=== PATIENT | male | born 1990 | race Caucasian/White ===

== ENCOUNTER 2023-08-06 10:06 | Day surgery (SDC) | payer BC, SELFPAY ==
[2023-08-06] VITALS (7 sets, daily range): BP systolic 100–143; BP diastolic 70–96; PULSE 68–78; RESP 16–18; TEMP 36.1–36.4; O2SAT 91–100; BMI 35.2
[2023-08-06] MEDS: sodium chloride 0.9% 1,000 ML 30 ML IV (10:56)
--- NOTE | 2023-08-06 11:09 | W.PM.OPSUD ---
Surgery/Procedure H&P Update DATE OF PROCEDURE: August 06, 2023 DATE H&P PERFORMED: 07/24/23 H&P UPDATE INFORMATION: I have reviewed H&P completed within last 30 days, I have examined patient prior to procedure and No changes to prior documentation PLANNED PROCEDURE: Operation Date: 08/06/23 11:50 Proposed Procedures p [id number] excision subcutaneous mass on scalp and excision of skin lesion on back D17.9(Not Applicable) - Jayme Guzman, DO
--- NOTE | 2023-08-06 11:47 | ANES.PREANE2 ---
Pre-Anesthetic Assessment Height/Weight: Height 1.83 m Weight 117.934 kg Temp Pulse Resp BP Pulse Ox O2 Del Method 97.5 F L 69 18 143/96 95 Room Air 08/06/23 10:44 08/06/23 10:44 08/06/23 10:44 08/06/23 10:44 08/06/23 10:44 08/06/23 10:44 Operation Date: 08/06/23 11:50 Proposed Procedures p [id number] excision subcutaneous mass on scalp and excision of skin lesion on back D17.9(Not Applicable) - Jayme Guzman DO Familial anesthetic complications: None Was Beta Enrique taken within 24 hours: N/A Was Clonidine taken within 24 hours: N/A Last intake: Intake Last Liquid Date 08/05/23 Last Liquid Time 19:00 Last Solid Date 08/05/23 Last Solid Time 19:00 Social No alcohol and No tobacco Exam alert, oriented x 3, clear to auscultation bilaterally and regular rate & rhythm Airway Mallampati: Class III Dentition: full Metabolic Morbid Obesity Anesthetic Plan ASA status: 2 Anesthesia: Choice Risk of > 500 ml blood loss (7ml/kg in children): No Medications/Allergies Home Medications Medication Instructions Recorded Confirmed Last Taken Type No Known Home Medications 07/24/23 08/06/23 Unknown History Allergies Allergy/AdvReac Type Severity Reaction Status Date / Time No Known Allergies Allergy Unverified 07/24/23 12:07 Current Medications Generic Name Dose Route Start Last Admin Trade Name Freq PRN Reason Stop Dose Admin Sodium Chloride 1,000 mls @ 30 mls/hr 08/06/23 10:45 08/06/23 10:56 Sodium Chloride 0.9% IV 08/07/23 10:44 30 mls/hr .Q24H KAILA Administration PFSH Anesthesia Family History Grandfather Tumor of lung Malignant Social History Smoking and tobacco/nicotine status: former use of tobacco/nicotine Alcohol intake: current Alcohol intake frequency: holidays/special occasions only Data Anesthesia Cardiac Studies: No Data to Display
[2023-08-06] MEDS: ceFAZolin 2,000 MG in sodium chloride 0.9% (plus) 50 ML 100 MG IV (12:47)
--- NOTE | 2023-08-06 13:40 | PM.OP ---
Operative Report Date of procedure: August 06, 2023 Pre-op diagnosis: Subcutaneous mass of posterior scalp Skin lesion of back Post-op diagnosis: same Procedure done: Excision of subcutaneous mass of posterior scalp and skin lesion of back Implants: None Specimens removed/disposition: Subcutaneous mass of posterior scalp Elliptical excision of skin lesion of back Surgeon: Jayme Guzman DO Anesthesia: General Estimated blood loss (mL): 5 Complications: None apparent Brief History: This a very pleasant 33-year-old gentleman who had an enlarging and painful subcutaneous mass of his posterior scalp that he wanted excised. He also had a nevus of his back that he would like removed. The risk and benefits were explained and documented. Procedure: Patient was wheeled the operative room placed on the OR table in the supine position. An LMA was placed by the department of anesthesia. The patient was then moved into the left lateral decubitus position. Patient's posterior neck and back were inspected prepped and draped in usual sterile fashion. A timeout was performed. All present were in agreement. 2% lidocaine with epinephrine was used to anesthetize the skin overlying the subcutaneous mass of the posterior scalp and the skin lesion of the back. A 2.5 cm incision was made transversely on the posterior scalp. Dissection was carried down with electrocautery to a somewhat firm and lobulated mass of fat and connective tissue. This was shelled out whole using electrocautery. Specimen was passed off. Specimen measured 4 cm in greatest diameter. Electrocautery was used for hemostasis. Attention was then brought to the lesion on the back. There was a nevus on his back which was round and elevated, skin colored measuring 6 mm in greatest diameter. A 1 cm ellipse was made transversely with a 15 blade scalpel and the specimen was passed off. Electrocautery was used for hemostasis. Wounds were irrigated and suctioned. Skin was closed with 3-0 nylon in a simple interrupted fashion. Sterile bandage was applied. Patient tolerated procedure well.
[2023-08-06] MEDS: lidocaine-epi 2% 20 mL INJ 3 ML INJECTION (13:52)
--- NOTE | 2023-08-06 14:55 | ANE.PACU2 ---
Inpatient post-anesthesia follow up: Airway intact: Yes Vital signs: Temperature 97.5 F Pulse Rate 72 Respiratory Rate 16 Blood Pressure 121/81 Pulse Oximetry 99 Oxygen Delivery Me thod Room Air Oxygen Flow Rate 6 Fraction of Inspir ed Oxygen Hydration adequate: Yes Nausea and vomiting: No Pain level: 1 Mental status: Baseline
== END 2023-08-06 14:54 | disposition home or self-care (01) ==
PROVIDERS: PCP Family Medicine; Visit Provider Surgery
PROC: (CPT 11401; principal; 2023-08-06 11:50)
DX: D17.1 Benign lipomatous neoplasm of skin and subcutaneous tissue of trunk (principal); D17.0 Benign lipomatous neoplasm of skin and subcutaneous tissue of head, face and neck; E66.01 Morbid (severe) obesity due to excess calories; Z68.35 Body mass index [BMI] 35.0-35.9, adult; Z87.891 Personal history of nicotine dependence
CPT/HCPCS: 11401; 12031; 21014; 84166; 88304; 88307; J0690; J1100; J1885; J2250; J2405; J2704; J3010; J7030